=== PATIENT | female | born 1980 | race Caucasian/White ===

== ENCOUNTER 2016-09-06 19:16 | Emergency (ER) | payer MEDICAID ==
[~2016-09-06] VITALS: Ht 157.5 cm; Wt 68.0 kg
[~2016-09-06 19:16] MED LIST: ACET1TAB40 PO; ACET500T98; CEPH500C PO; PHEN-538 PO; PREN1TAB49 PO
[2016-09-06 19:34] VITALS: Ht 157.5 cm; Wt 68.0 kg
[2016-09-06] MEDS ORDERED: BACTDS PO (20:29)
[2016-09-06] MEDS ORDERED: NAPR-260 PO (20:29)
[2016-09-06] MEDS ORDERED: CEPH-443 PO (20:29)
[2016-09-06] MEDS ORDERED: HYDR-906 PO (20:29)
[2016-09-06] MEDS ORDERED: IBUPROFEN 800 MG TAB PO ONE (21:00)
--- NOTE | 2016-09-07 06:23 | ERD ---
DATE OF SERVICE: 09/06/2016 HISTORY OF PRESENT ILLNESS: The patient is a 35-year-old female complaining of pain to her right fo ot. The patient stated this happened 2 days ago. She has never had this before. She has pain betw een her fourth and fifth toe and has not used any medication on the site. She denies any falls or t raumatic injuries. No numbness or tingling. The patient's last tetanus was 2 years ago. PAST MEDICAL HISTORY: Denies any other medical problems. ALLERGIES: DENIES ALLERGIES TO MEDICATION. PAST SURGICAL HISTORY: Denies. HOSPITALIZATIONS: Denies. REVIEW OF SYSTEMS: A 12-point review of systems was done. Refer to HPI for positives; all other sy stems negative. PHYSICAL EXAMINATION: VITAL SIGNS: Temperature is 100.1, pulse 96, blood pressure is 123/86, respiratory rate 18, O2 sat 96% on room air. Pain intensity is 6/10. GENERAL: The patient is well-appearing, well-nourished, no acute distress. CHEST: Clear to auscultation bilaterally. There are no rales, wheezes or rhonchi. HEART: Regular rate and rhythm. No murmurs, clicks, rubs or gallops. No S3 or S4. EXTREMITIES: Equal pulses bilaterally. There is no peripheral clubbing, cyanosis or edema. No focal swelling or erythema. Full range of motion. Grossly neurovascularly intact. SKIN: There is erythema noted proximal to the fourth and fifth toe with fissures noted between the intertriginous webbing of the fourth and fifth toe with mild purulence. The patient does have a sit e of erythema and one sight of lymph streaking. Compartments are soft. Pulses are intact. The pat ient is neurovascularly intact. No tenderness to palpation of the extremities. EMERGENCY ROOM COURSE: The case was discussed with Dr. Iraheta given the patient does have lymphatic streaking; however, I did not feel there was indication for IV antibiotics or admission at this cathi e. I feel the patient was stable for outpatient management and close followup. Dr. Iraheta also agr eed with the plan, and the patient will be discharged with strict ER precautions. DIAGNOSIS: Cellulitis. MEDICAL DECISION MAKING: I have low suspicion for deep tracking infection, low suspicion for tendon ligament or bony injury. The patient does have concerning findings for cellulitis; however, she greco s not tried oral antibiotics, and I feel an outpatient antibiotic treatment is reasonable with close evaluation. DISCHARGE: The patient is discharged stable. The patient is given prescription for Bactrim, Keflex , and Evangeline and told to follow up with primary care within 1 to 2 days for reevaluation. The patien t was told if symptoms progress or worsen to return to the ER. All other questions answered at time of discharge. Discharge summary given at the time of departure. The patient understood and compli ed with plan. Dictated By: FIFI ANTON for EVA KATZ/NTS Conf#: [id number] DID#: [id number]
== END 2016-09-06 21:11 | disposition home or self-care (01) ==
LOC: FTE 19:16
DX: L03.115 Cellulitis of right lower limb (principal)
CPT/HCPCS: Z7502; Z7610; 99284